=== PATIENT | female | born 1985 | race Caucasian/White ===

== ENCOUNTER 2024-02-11 10:29 | Outpatient (CLI) | payer OTHER | END 2024-02-11 10:33 | disposition home or self-care (01) | LOC: SONOGRAMA 10:29 | PROVIDERS: ATTEND Pathology Anatomic Pathology & Clinical Pathology | DX: C73 Malignant neoplasm of thyroid gland (principal); D34 Benign neoplasm of thyroid gland; E07.89 Other specified disorders of thyroid; E04.2 Nontoxic multinodular goiter ==